=== PATIENT | male | born 1960 | race Caucasian/White ===

== ENCOUNTER 2018-05-12 13:33 | Emergency (ER) | payer OTHER ==
[2018-05-12 13:57] VITALS: BP 150/95; PULSE 86; TEMP 97.9; BMI 28.1
--- NOTE | 2018-05-12 14:37 | PDOC ---
History of Present Illness - General Chief Complaint: Cold Symptoms Stated Complaint: COUGHING Time Seen by Provider: 05/12/18 14:29 - History of Present Illness Initial Comments: 05/12/18 14:34 58-year-old male with a past medical history significant for hypertension, he was diabetic and however he is now controlled with diet and exercise. Presents for evaluation of fever chills night sweats and intermittent cough 5 days Past History - Past Medical History Allergies/Adverse Reactions: Allergies Allergy/AdvReac Type Severity Reaction Status Date / Time bee pollen Allergy Verified 11/30/15 08:28 Home Medications: Ambulatory Orders Acetaminophen [Tylenol .Regular Strength -] 650 mg PO Q6H PRN #0 tablet Ibuprofen [Motrin] 800 mg PO TID #20 tablet 11/11/14 Losartan Potassium [Cozaar -] 12.5 mg PO ASDIR 05/12/18 Cardiac Disorders: Yes (atypical chest pain workup) CVA: No COPD: No Diabetes: No HTN: Yes Hypercholesterolemia: Yes Seizures: No - Surgical History Appendectomy: Yes - Suicide/Smoking/Psychosocial Hx Smoking Status: No Smoking History: Never smoked Have you smoked in the past 12 months: No Number of Cigarettes Smoked Daily: 0 Cigars Per Day: 0 Hx Alcohol Use: No Drug/Substance Use Hx: No Substance Use Type: None Review of Systems - Review of Systems Constitutional: Yes: Fever, Malaise, Night Sweats Respiratory: Yes: Cough *Physical Exam - Vital Signs Last Vital Signs Temp Pulse Resp BP Pulse Ox 97.9 F 86 18 150/95 97 05/12/18 13:55 05/12/18 13:55 05/12/18 13:55 05/12/18 13:55 05/12/18 13:55 - Physical Exam Comments: 05/12/18 14:35 HEAD: NC/AT EYES: Conjuntiva clear Ears: Canals and TM's normal NOSE: No d/c THROAT: Moist mucous membrances, oral pharanx clear, uvula midline NECK: Supple without adenopathy CARDIAC: S1 S2 LUNGS: CTA Full and Equal breath sounds ABDOMEN: Soft NT ND MS: Full ROM in all joints without edema NEUROLOGIC: No gross sensory or motor deficits, NVID SKIN: Normal color and temperature no lesions or rashes Moderate Sedation - Procedure Monitoring Vital Signs: Procedure Monitoring Vital Signs Temperature 97.9 F 05/12/18 13:55 Pulse Rate 86 05/12/18 13:55 Respiratory Rate 18 05/12/18 13:55 Blood Pressure 150/95 05/12/18 13:55 O2 Sat by Pulse Oximetry (%) 97 05/12/18 13:55 Medical Decision Making - Medical Decision Making 05/12/18 14:35 Out out of range for treatment with Tamiflu. Supportive care follow-up with PCP *DC/Admit/Observation/Transfer Diagnosis at time of Disposition: Upper respiratory infection - Discharge Dispostion Disposition: HOME Condition at time of disposition: Stable Decision to Admit order: No - Referrals Referrals: Jose Noriega MD [Primary Care Provider] - - Patient Instructions Printed Discharge Instructions: DI for Viral Upper Respiratory Infection -- Adult Additional Instructions: Continue with Tylenol and Motrin as directed for body aches. Return to the emergency room should symptoms worsen or go unresolved. Follow-up with your primary care physician one to 2 days for further evaluation and treatment options. - Post Discharge Activity
== END 2018-05-12 14:37 | disposition home or self-care (01) ==
LOC: JERFT 13:33
DX: J06.9 Acute upper respiratory infection, unspecified (principal); B97.89 Other viral agents as the cause of diseases classified elsewhere; I10 Essential (primary) hypertension
CPT/HCPCS: 99281-25

== ENCOUNTER 2018-08-17 19:09 | Emergency (ER) | payer OTHER ==
[2018-08-17 19:33] VITALS: TEMP 98.7; BMI 28.1
--- NOTE | 2018-08-17 19:41 | PDOC ---
History of Present Illness - General Chief Complaint: Pain Stated Complaint: pain Time Seen by Provider: 08/17/18 19:39 - History of Present Illness Initial Comments: 08/17/18 19:39 Mr. White is a 58 yo male w/ pmh of HTN, HLD, gout, and prior DM controlled w/ diet and exercise who presents for evaluation of symptoms after bug bite recently - patient returned from [facility] on Sunday. Patient reports bite was on R forearm - is unsure of the day. Following this patient has had joint pain (10/10 R elbow), L elbow pain and L knee pain. Patient has also had subjective fever w/ chills / night sweats 2 days ago. On this same day Mr. Guzman endorses a mechanical fall backwards onto a chair where he landed on his R hand. Currently complaining of pain at R wrist as well s/p fall. Patient also endorses a new sexual partner sometime last week and requests GC and HIV testing. The patient denies chest pain, shortness of breath, headache and dizziness. Denies vomit, diarrhea and constipation. Denies dysuria, frequency, urgency and hematuria. Past History - Past Medical History Allergies/Adverse Reactions: Allergies Allergy/AdvReac Type Severity Reaction Status Date / Time bee pollen Allergy Verified 11/30/15 08:28 Home Medications: Ambulatory Orders Losartan Potassium [Cozaar -] 12.5 mg PO ASDIR 05/12/18 Dapagliflozin Propanediol [Farxiga] 5 mg PO 08/17/18 Metformin HCl [Glucophage] 500 mg PO 08/17/18 Cardiac Disorders: Yes (atypical chest pain workup) CVA: No COPD: No Diabetes: No HTN: Yes Hypercholesterolemia: Yes Seizures: No - Surgical History Appendectomy: Yes - Suicide/Smoking/Psychosocial Hx Smoking Status: No Smoking History: Never smoked Have you smoked in the past 12 months: No Number of Cigarettes Smoked Daily: 0 Cigars Per Day: 0 Hx Alcohol Use: No Drug/Substance Use Hx: No Substance Use Type: None Review of Systems - Review of Systems Comments:: 08/17/18 19:41 GENERAL/CONSTITUTIONAL: +Subjective fever/chills as described (resolved). No weakness. HEAD, EYES, EARS, NOSE AND THROAT: No change in vision. No ear pain or discharge. No sore throat. CARDIOVASCULAR: No chest pain or shortness of breath RESPIRATORY: No cough, wheezing, or hemoptysis. GASTROINTESTINAL: No nausea, vomiting, diarrhea or constipation. GENITOURINARY: No dysuria, frequency, or change in urination. MUSCULOSKELETAL: +Joint pain as described. SKIN: No rash NEUROLOGIC: No headache, vertigo, loss of consciousness, or change in strength/ sensation. ENDOCRINE: No increased thirst. No abnormal weight change HEMATOLOGIC/LYMPHATIC: No anemia, easy bleeding, or history of blood clots. ALLERGIC/IMMUNOLOGIC: No hives or skin allergy. *Physical Exam - Vital Signs Last Vital Signs Temp Pulse Resp BP Pulse Ox 98.7 F 104 H 19 124/75 98 08/17/18 19:30 08/17/18 19:30 08/17/18 19:30 08/17/18 19:30 08/17/18 19:30 - Physical Exam Comments: 08/17/18 19:41 GENERAL: Awake, alert, and fully oriented, in no acute distress HEAD: No signs of trauma, normocephalic, atraumatic EYES: PERRLA, EOMI, sclera anicteric, conjunctiva clear ENT: Auricles normal inspection, hearing grossly normal, nares patent, oropharynx clear without exudates. Moist mucosa NECK: Normal ROM, supple, no lymphadenopathy, JVD, or masses LUNGS: No distress, speaks full sentences, clear to auscultation bilaterally HEART: Regular rate and rhythm, normal S1 and S2, no murmurs, rubs or gallops, peripheral pulses normal and equal bilaterally. ABDOMEN: Soft, nontender, normoactive bowel sounds. No guarding, no rebound. No masses EXTREMITIES: +Left elbow warm to touch. Pain to palpation of R wrise, elbow, L elbow, L knee. Otherwise normal inspection, normal range of motion, no edema. No clubbing or cyanosis. NEUROLOGICAL: Cranial nerves II through XII grossly intact. Normal speech, normal gait, no focal sensorimotor deficits SKIN: Warm, Dry, normal turgor, no rashes or lesions noted. ED Treatment Course - LABORATORY CBC & Chemistry Diagram: 08/17/18 20:43 08/17/18 20:43 Medical Decision Making - Medical Decision Making 08/17/18 22:33 Mr. White is a 58 yo male w/ pmh as described who presents for evaluation of symptoms concerning for gout vs. septic joint vs. disseminated gonorrhea (more unlikely). Patient evaluated with labs as below. Labs significant for mildly elevated WBC, elevated ESR and elevated CRP. Patient exam negative for factors that raise concern for septic joint as patient able to range all joints w/out difficulty. Patient not currently febrile as well. Discussed with patient that STI testing will take several days. Patient reports improvement of symptoms following fluids and toradol. XR evaluation of joints negative. No concern for acute process at this time. Discussed with patient at length that he will need follow-up this week and that he should return immediately if any changes, fevers , or other concerning developments. Patient verbalized understanding and agreement. Rheumatology info provided. Discharging to home. Laboratory Results - last 24 hr 08/17/18 08/17/18 08/17/18 20:43 20:43 20:43 WBC 11.8 H RBC 4.65 Hgb 13.1 Hct 40.3 MCV 86.8 MCH 28.1 MCHC 32.4 RDW 14.5 Plt Count 210 MPV 8.5 Absolute Neuts (auto) 9.1 H Neutrophils % 77.2 D Lymphocytes % 13.0 D Monocytes % 7.2 Eosinophils % 1.8 Basophils % 0.8 Nucleated RBC % 0 ESR 44 H Sodium 140 Potassium 4.1 Chloride 107 Carbon Dioxide 26 Anion Gap 7 L BUN 20 H Creatinine 1.2 Est GFR (CKD-EPI)AfAm 77.33 Est GFR (CKD-EPI)NonAf 66.72 Random Glucose 246 H Calcium 8.9 Total Bilirubin 0.4 AST 15 ALT 21 Alkaline Phosphatase 56 C-Reactive Protein 14.5 H Total Protein 6.6 Albumin 3.5 *DC/Admit/Observation/Transfer Diagnosis at time of Disposition: Polyarthralgia - Discharge Dispostion Disposition: HOME - Referrals Referrals: Jose Noriega MD [Primary Care Provider] - Cesar Griggs MD [Non Staff, Medical] - - Patient Instructions Printed Discharge Instructions: DI for Arthralgia Additional Instructions: You were evaluated today in the ER for your pain. We performed Xray of your joints as well as laboratory evaluation with no specific emergent findings. Some of your labs are still pending and you will be updated if any concerning values arise. Please follow-up with primary care provider on Sunday for further evaluation. We have also provided you with rheumatology information you may use to establish care if you desire. Return to ER immediately if any fever, chills, increase in pain, difficulty moving joints, or other concerning symptoms. - Post Discharge Activity
[2018-08-17] MEDS ORDERED: KETOROLAC TROMETHAMINE 30 MG/1 ML VIAL IVPUSH ONE ×2 (20:09→20:27)
[2018-08-17] MEDS ORDERED: KETOROLAC TROMETHAMINE 60 MG/2 ML VIAL IM ONE (20:18)
[2018-08-17] MEDS ORDERED: KETOROLAC TROMETHAMINE 30 MG/1 ML VIAL ONE (20:27)
[2018-08-17] MEDS ORDERED: SODIUM CHLORIDE 1,000 ML IV STA (20:48)
[2018-08-17 21:04] LABS: BASO % 0.8 % (0-2.0); EOS % 1.8 % (0-4.5); HEMATOCRIT 40.3 % (35.4-49); HEMOGLOBIN 13.1 GM/dL (11.7-16.9); MCH 28.1 pg (25.7-33.7); MCHC 32.4 g/dl (32.0-35.9); MEAN CELL VOLUME 86.8 fl (80-96); MEAN PLT VOLUME 8.5 fl (7.5-11.1); MONO % 7.2 % (3.8-10.2); NEUT % 77.2 % (42.8-82.8); PLATELET COUNT 210 K/MM3 (134-434); RBC 4.65 M/mm3 (4.00-5.60); RDW 14.5 % (11.9-15.9); WHITE BLOOD COUNT 11.8 K/mm3 (4.0-10.0)
[2018-08-17 21:24] LABS: ALBUMIN 3.5 g/dl (3.4-5.0); BILIRUBIN,TOTAL 0.4 mg/dL (0.2-1); CALCIUM 8.9 mg/dL (8.5-10.1); CREATININE 1.2 mg/dL (0.55-1.3); POTASSIUM 4.1 mmol/L (3.5-5.1); TOT PROT 6.6 g/dl (6.4-8.2)
--- NOTE | 2018-08-17 21:24 | PDOC ---
Documentation entered by Lillian Tejeda SCRIBE, acting as scribe for Luan Flores MD. Luan Flores MD: This documentation has been prepared by the Ileana camilo Daisy, SCRIBE, under my direction and personally reviewed by me in its entirety. I confirm that the documentation accurately reflects all work, treatment, procedures, and medical decision making performed by me. Attending Attestation - Resident Resident Name: [email or web address] - ED Attending Attestation I have performed the following: I have examined & evaluated the patient, The case was reviewed & discussed with the resident, I agree w/resident's findings & plan, Exceptions are as noted - HPI HPI: 08/17/18 19:55 The patient is a 58YOM with a PMH of HTN, HLD, gout and pre-DM who presents to the ER complaining of joint pains, fevers, chills. Pt reports right forearm pain and right wrist, left forearm and left knee pain s/p mechanical fall 2 days ago. He states he returned from the [place] on 08/13 and had noticed what he thought was an insect bite to his R forearm. Since then he has had subjective fevers and chills. Denies cough. Denies LEIGH/neck pain. Denies abdominal pain/N/V/D. Allergies: bee pollen - Physicial Exam PE: 08/17/18 21:14 GENERAL: Awake, alert, and fully oriented, in no acute distress. HEAD: No signs of trauma EYES: PERRLA, EOMI, sclera anicteric, conjunctiva clear ENT: Auricles normal inspection, hearing grossly normal, nares patent, oropharynx clear without exudates. Moist mucosa NECK: Nontender, no stepoffs, Normal ROM, supple, no lymphadenopathy, JVD, or masses LUNGS: Breath sounds equal, clear to auscultation bilaterally. No wheezes, and no crackles HEART: Regular rate and rhythm, normal S1 and S2, no murmurs, rubs or gallops ABDOMEN: Soft, nontender, normoactive bowel sounds. No guarding, no rebound. No masses EXTREMITIES: Normal range of motion, no edema. No clubbing or cyanosis. No cords, erythema, or tenderness NEUROLOGICAL: Cranial nerves II through XII intact. 5/5 strength and sensation in all extremities, Normal speech, normal gait, normal cerebellar function SKIN: Warm, Dry, normal turgor, no rashes or lesions noted. - Medical Decision Making 08/17/18 21:20 58 M with subjective fevers, chills, polyarthralgias. Pt with no evidence of traumatic injury on exam other than single raised erythematous lesion on his R forearm. Suspect viral syndrome. Pt with no annular rash and did not see any ticks, making Lyme disease unlikely. Pt without any history of polyarthritis in the past. - Labs - XR R forearm - IVF, NSAIDs 08/17/18 22:37 Labs with elevated ESR/CRP - nonspecific Lyme titers sent GC/CT pending XRs negative on my read Pt reassessed - feels much better with toradol and fluids Suspect viral syndrome but cannot exclude rheumatologic process Will DC with NSAIDs and rheum f/u Pt is well appearing, with normal vitals. Clinically stable for DC at this time. I discussed the physical exam findings, ancillary test results and final diagnoses with the patient. I answered all of the patient's questions. The patient was satisfied with the care received and felt comfortable with the discharge plan and treatment plan. The patient agrees to follow up with the primary care physician within 24-72 hours.
[2018-08-17 23:07] VITALS: BP 126/78; PULSE 98
--- NOTE | 2018-08-18 07:48 | PDOC ---
*Physical Exam - Vital Signs Last Vital Signs Temp Pulse Resp BP Pulse Ox 98.7 F 98 H 18 126/78 100 08/17/18 19:30 08/17/18 23:06 08/17/18 23:06 08/17/18 23:06 08/17/18 23:06 ED Treatment Course - LABORATORY CBC & Chemistry Diagram: 08/17/18 20:43 08/17/18 20:43 - ADDITIONAL ORDERS Additional order review: Laboratory Results 08/17/18 20:43 Sodium 140 Potassium 4.1 Chloride 107 Carbon Dioxide 26 Anion Gap 7 L BUN 20 H Creatinine 1.2 Est GFR (CKD-EPI)AfAm 77.33 Est GFR (CKD-EPI)NonAf 66.72 Random Glucose 246 H Calcium 8.9 Total Bilirubin 0.4 AST 15 ALT 21 Alkaline Phosphatase 56 C-Reactive Protein 14.5 H Total Protein 6.6 Albumin 3.5 08/17/18 20:43 RBC 4.65 MCV 86.8 MCHC 32.4 RDW 14.5 MPV 8.5 Neutrophils % 77.2 D Lymphocytes % 13.0 D Monocytes % 7.2 Eosinophils % 1.8 Basophils % 0.8 - Medications Given in the ED: ED Medications Discontinued Medications Generic Name Dose Route Start Last Admin Trade Name Freq PRN Reason Stop Dose Admin Sodium Chloride 1,000 mls @ 1,000 mls/hr 08/17/18 20:48 08/17/18 20:54 Normal Saline - IV 08/17/18 21:47 1,000 mls/hr ASDIR STA Administration Ketorolac Tromethamine 30 mg 08/17/18 20:09 08/17/18 20:57 Toradol Injection - IVPUSH 08/17/18 20:10 Not Given ONCE ONE Ketorolac Tromethamine 60 mg 08/17/18 20:18 08/17/18 20:57 Toradol Injection - IM 08/17/18 20:19 Not Given ONCE ONE Ketorolac Tromethamine 30 mg 08/17/18 20:27 08/17/18 20:53 Toradol Injection - IVPUSH 08/17/18 20:28 30 mg ONCE ONE Administration Medical Decision Making - Medical Decision Making 08/18/18 07:[address] Rudolph due to concern about subtle impaction fracture on R wrist film--recommends repeat films. I called the patient to inform him of these findings and to ask him to return to the ED for repeat films. Patient will come in today. *DC/Admit/Observation/Transfer Diagnosis at time of Disposition: Polyarthralgia - Discharge Dispostion Disposition: HOME Condition at time of disposition: Stable - Prescriptions Prescriptions: Naproxen 500 mg PO BID #14 tablet - Referrals Referrals: Cesar Griggs MD [Non Staff, Medical] - Jose Noriega MD [Primary Care Provider] - - Patient Instructions Printed Discharge Instructions: DI for Arthralgia Additional Instructions: You were evaluated today in the ER for your pain. We performed Xray of your joints as well as laboratory evaluation with no specific emergent findings. Some of your labs are still pending and you will be updated if any concerning values arise. Please follow-up with primary care provider on Sunday for further evaluation. We have also provided you with rheumatology information you may use to establish care if you desire. Return to ER immediately if any fever, chills, increase in pain, difficulty moving joints, or other concerning symptoms. - Post Discharge Activity
== END 2018-08-17 23:26 | disposition home or self-care (01) ==
LOC: JER 19:09
PROC: 3E0337Z Introduction of Electrolytic and Water Balance Substance into Peripheral Vein, Percutaneous Approach (ICD-10-PCS; principal; 2018-08-17)
PROC: 3E0333Z Introduction of Anti-inflammatory into Peripheral Vein, Percutaneous Approach (ICD-10-PCS; 2018-08-17)
DX: M25.522 Pain in left elbow (principal); M25.521 Pain in right elbow; M25.531 Pain in right wrist; M25.562 Pain in left knee; R70.0 Elevated erythrocyte sedimentation rate; R79.82 Elevated C-reactive protein (CRP)
CPT/HCPCS: 36415; 71046-TC-FY; 73090-TC-RT-FY; 73110-TC-RT-FY; 73562-TC-LT-FY; 80053; 85025; 85651; 86140; 86618; 87389; 87491; 87591; 87804; 96361; 96374; 99283-25; J7030

== ENCOUNTER 2018-08-18 16:16 | Emergency (ER) | payer OTHER ==
[2018-08-18 16:24] VITALS: BP 153/79; PULSE 92; TEMP 99; BMI 28.1
--- NOTE | 2018-08-18 17:45 | PDOC ---
History of Present Illness - General Chief Complaint: Revisit,Radiology Variance Stated Complaint: SENT FOR X-RAY Time Seen by Provider: 08/18/18 16:45 Past History - Past Medical History Allergies/Adverse Reactions: Allergies Allergy/AdvReac Type Severity Reaction Status Date / Time bee pollen Allergy Verified 08/18/18 16:24 Home Medications: Ambulatory Orders Losartan Potassium [Cozaar -] 12.5 mg PO ASDIR 05/12/18 Dapagliflozin Propanediol [Farxiga] 5 mg PO 08/17/18 Metformin HCl [Glucophage] 500 mg PO 08/17/18 Naproxen 500 mg PO BID #14 tablet 08/17/18 Cardiac Disorders: Yes (atypical chest pain workup) CVA: No COPD: No Diabetes: No HTN: Yes Hypercholesterolemia: Yes Seizures: No - Surgical History Appendectomy: Yes - Suicide/Smoking/Psychosocial Hx Smoking Status: No Smoking History: Never smoked Have you smoked in the past 12 months: No Number of Cigarettes Smoked Daily: 0 Cigars Per Day: 0 Hx Alcohol Use: No Drug/Substance Use Hx: No Substance Use Type: None *Physical Exam - Vital Signs Last Vital Signs Temp Pulse Resp BP Pulse Ox 99 F 92 H 18 153/79 99 08/18/18 16:22 08/18/18 16:22 08/18/18 16:22 08/18/18 16:22 08/18/18 16:22 ED Treatment Course - RADIOLOGY Radiology Studies Ordered: Category Date Time Status WRIST W/HAND-RIGHT* [RAD] Stat Radiology 08/18/18 16:26 Taken *DC/Admit/Observation/Transfer Diagnosis at time of Disposition: Radial fracture Qualifiers: Encounter type: initial encounter Radius location: distal Fracture type: closed Fracture morphology: unspecified fracture morphology Laterality: right Qualified Code(s): S52.501A - Unspecified fracture of the lower end of right radius, initial encounter for closed fracture - Discharge Dispostion Disposition: HOME Condition at time of disposition: Stable Decision to Admit order: No - Referrals Referrals: Rustam Epps MD [Staff Physician] - - Patient Instructions Printed Discharge Instructions: DI for Forearm Fracture Additional Instructions: You have a break in your radius (forearm) You were splinted today Keep the splint clean and dry. Cover it when showering Take the Naproxen that was prescribed to you twice a day Follow up with orthopedics. A referral has been given Call back in 3 days for the results of your blood test Follow up with your primary care doctor this week Return to the ER for any new or worsening symptoms - Post Discharge Activity
[2018-08-18] MEDS ORDERED: KETOROLAC TROMETHAMINE 60 MG/2 ML VIAL IM ONE (17:49)
[2018-08-18] MEDS ORDERED: KETOROLAC TROMETHAMINE 60 MG/2 ML VIAL ONE (17:51)
== END 2018-08-18 17:56 | disposition home or self-care (01) ==
LOC: JERFT 16:16
PROC: 2W3DX1Z Immobilization of Left Lower Arm using Splint (ICD-10-PCS; principal; 2018-08-18)
DX: S52.501D Unspecified fracture of the lower end of right radius, subsequent encounter for closed fracture with routine healing (principal); X58.XXXD Exposure to other specified factors, subsequent encounter
CPT/HCPCS: 29125; 73110-TC-RT-FY; 73130-TC-RT-FY; 99281-25

== ENCOUNTER 2021-01-05 13:25 | Observation (INO) | payer OTHER ==
[2021-01-05 13:39] VITALS: BMI 27.0
[2021-01-05 15:35] LABS: BASO % 0.7 % (0-2.0); HEMATOCRIT 43.1 % (35.4-49); HEMOGLOBIN 14.6 GM/dL (11.7-16.9); LYMPH % 29.6 % (8-40); MCH 28.7 pg (25.7-33.7); MCHC 33.8 g/dl (32.0-35.9); MEAN CELL VOLUME 84.8 fl (80-96); MEAN PLT VOLUME 8.7 fl (7.5-11.1); MONO % 6.1 % (3.8-10.2); NEUT % 60.6 % (42.8-82.8); PLATELET COUNT 247 10^3/uL (134-434); RBC 5.08 M/mm3 (4.00-5.60); RDW 14.6 % (11.9-15.9); WHITE BLOOD COUNT 8.5 K/mm3 (4.0-10.0)
[2021-01-05 15:52] LABS: CHLORIDE 105 mmol/L (98-107); SODIUM 139 mmol/L (136-145)
[2021-01-05 15:55] LABS: ALBUMIN 4.2 g/dl (3.4-5.0); ANION GAP 8 MMOL/L (8-16); BLOOD UREA NITROGEN 18.5 mg/dL (7-18); CALCIUM 9.7 mg/dL (8.5-10.1); CO2 26 mmol/L (21-32); GLUCOSE,RANDOM 84 mg/dL (74-106)
[2021-01-05 15:58] LABS: CREATININE 0.9 mg/dL (0.55-1.3); SGOT/AST 8 U/L (15-37); SGPT/ALT 23 U/L (13-61)
[2021-01-05 16:00] LABS: BILIRUBIN,TOTAL 0.6 mg/dL (0.2-1); TOT PROT 7.6 g/dl (6.4-8.2)
[2021-01-05 16:01] LABS: ALK PHOS 55 U/L (45-117)
[2021-01-05] MEDS ORDERED: ASPIRIN 81 MG CHEWABLE TABLETS PO ONE (18:53)
[2021-01-05] MEDS ORDERED: ASPIRIN 81 MG CHEWABLE TABLETS ONE (19:30)
[2021-01-06] MEDS ORDERED: PANTOPRAZOLE 40 MG TABLET PO ONE ×2 (01:44→06:00)
[2021-01-06] MEDS: INSULIN SLIDING SCALE (NOVOLOG) 1 VIAL SQ SCH ×2 (06:08→13:28)
[2021-01-06 06:58] LABS: BASO % 0.9 % (0-2.0); EOS % 5.5 % (0-4.5); HEMOGLOBIN 14.5 GM/dL (11.7-16.9); LYMPH % 27.5 % (8-40); MCH 28.8 pg (25.7-33.7); MCHC 33.8 g/dl (32.0-35.9); MEAN CELL VOLUME 85.2 fl (80-96); MEAN PLT VOLUME 9.1 fl (7.5-11.1); MONO % 7.3 % (3.8-10.2); NEUT % 58.8 % (42.8-82.8); PLATELET COUNT 245 10^3/uL (134-434); RBC 5.05 M/mm3 (4.00-5.60); RDW 14.2 % (11.9-15.9)
[2021-01-06 07:04] LABS: CHLORIDE 107 mmol/L (98-107); SODIUM 140 mmol/L (136-145)
[2021-01-06 07:06] LABS: CALCIUM 9.5 mg/dL (8.5-10.1)
[2021-01-06 07:07] LABS: ALBUMIN 3.9 g/dl (3.4-5.0); ANION GAP 5 MMOL/L (8-16); BLOOD UREA NITROGEN 22.6 mg/dL (7-18); CO2 28 mmol/L (21-32); GLUCOSE,RANDOM 146 mg/dL (74-106)
[2021-01-06 07:10] LABS: CHOLESTEROL 239 mg/dL (50-200); CREATININE 0.9 mg/dL (0.55-1.3); PHOSPHOROUS 3.9 mg/dL (2.5-4.9); SGOT/AST 8 U/L (15-37); SGPT/ALT 23 U/L (13-61); TRIGLYCERIDES 279 mg/dL (0-150)
[2021-01-06 07:11] LABS: BILIRUBIN,TOTAL 0.6 mg/dL (0.2-1); LDL CHOLESTEROL (ONLY SJRH) 155 mg/dL (5-100); TOT PROT 7.2 g/dl (6.4-8.2)
[2021-01-06 07:12] LABS: ALK PHOS 52 U/L (45-117); HDL CHOLESTEROL 31 mg/dL (40-60)
[2021-01-06] MEDS ORDERED: ENOXAPARIN NA (PORCINE) 40 MG/0.4 ML DISP.SYRIN SQ SCH (10:00)
[2021-01-06] MEDS ORDERED: HYDROCHLOROTHIAZIDE 12.5 MG CAPSULE (FP) PO SCH (10:00)
[2021-01-06] MEDS ORDERED: FLU VACC QS2021-22(6MOS UP)/PF 60 MCG/0.5 ML SYRINGE IM ONE (11:15)
[2021-01-06] MEDS ORDERED: metoPROLOL SUCCINATE 25 MG TAB.SR.24H (FP) PO SCH (13:00)
[2021-01-06 14:20] LABS: LDH 103 U/L (87-246)
[2021-01-06 14:51] VITALS: BP 148/63; PULSE 86; TEMP 98.3
[2021-01-06] MEDS ORDERED: ATORVASTATIN CA 20 MG TABLET (FP) PO SCH (22:00)
[2021-01-06] MEDS ORDERED: LOSARTAN POTASSIUM 50 MG TABLET PO SCH (22:00)
[2021-01-07] MEDS ORDERED: ASPIRIN 81 MG CHEWABLE TABLETS PO SCH (10:00)
== END 2021-01-06 18:25 | disposition home or self-care (01) ==
LOC: JER 13:25 → INTOOBSV 18:53 → OBSVTOIN 18:53 → UNDOADMOB 18:53 → JERBED 18:53 → J4W 23:15 → JERBED 23:15 → J4W 01-06 00:50 → JERBED 01-06 08:20
PROVIDERS: ADMIT Internal Medicine; ATTEND Nurse Practitioner Acute Care
PROC: 3E023GC Introduction of Other Therapeutic Substance into Muscle, Percutaneous Approach (ICD-10-PCS; principal; 2021-01-06)
PROC: 3E0234Z Introduction of Serum, Toxoid and Vaccine into Muscle, Percutaneous Approach (ICD-10-PCS; 2021-01-06)
PROC: 3E013VG Introduction of Insulin into Subcutaneous Tissue, Percutaneous Approach (ICD-10-PCS; 2021-01-06)
DX: R07.9 Chest pain, unspecified (principal); R73.03 Prediabetes; I10 Essential (primary) hypertension; Z79.4 Long term (current) use of insulin; Z29.9 Encounter for prophylactic measures, unspecified; Z23 Encounter for immunization; Z91.030 Bee allergy status
CPT/HCPCS: 36415; 71045-TC-FY; 78452-TC; 80053; 80061; 82550; 82728; 82962; 83036; 83615; 83735; 84100; 84443; 84484; 85025; 85379; 86140; 90686; 93005; 93010; 93017; 93306-TC; 96372; 99285-25; A9502; C9803; G0378; U0003; U0005

== ENCOUNTER 2023-06-26 21:53 | Emergency (ER) | payer OTHER ==
[2023-06-26 22:09] VITALS: BP 131/84; PULSE 108; RESP 20; TEMP 98.8; BMI 25.8
[2023-06-26] MEDS ORDERED: MAG HYDROX/AL HYDROX/SIMETH 30 ML UNIT-DOSE CUP ONE (22:45)
[2023-06-26] MEDS ORDERED: ONDANSETRON 4 MG/2 ML VIAL ONE (22:45)
[2023-06-26] MEDS ORDERED: FAMOTIDINE 20 MG/50 ML IVPB 20 MG/50 ML MG IVPB ONE (22:46)
[2023-06-26] MEDS: FAMOTIDINE 20 MG/50 ML IVPB 20 MG/50 ML MG IVPB ONE (23:02)
[2023-06-26] MEDS: ONDANSETRON 4 MG/2 ML VIAL IVPUSH ONE (23:02)
[2023-06-26] MEDS: MAG HYDROX/AL HYDROX/SIMETH 30 ML UNIT-DOSE CUP PO ONE (23:02)
[2023-06-26] MEDS: LACTATED RINGERS SOLUTION 1000 ML INFUS.BAG IV ONE (23:02)
[2023-06-26 23:06] LABS: BASO % 0.5 % (0-2.0); EOS % 4.4 % (0-4.5); HEMATOCRIT 44.2 % (35.4-49); HEMOGLOBIN 14.4 GM/dL (11.7-16.9); LYMPH % 10.5 % (8-40); MCH 26.6 pg (25.7-33.7); MCHC 32.6 g/dl (32.0-35.9); MEAN CELL VOLUME 81.7 fl (80-96); MEAN PLT VOLUME 8.5 fl (7.5-11.1); MONO % 8.5 % (3.8-10.2); NEUT % 76.1 % (42.8-82.8); PLATELET COUNT 267 10^3/uL (134-434); RBC 5.41 M/mm3 (4.00-5.60); RDW 15.7 % (11.9-15.9)
[2023-06-26 23:31] LABS: POTASSIUM 4.4 mmol/L (3.5-5.1)
[2023-06-26 23:34] LABS: ALBUMIN 4.2 g/dl (3.4-5.0); BLOOD UREA NITROGEN 33.1 mg/dL (7-18); CALCIUM 9.9 mg/dL (8.5-10.1); MAGNESIUM 1.7 mg/dL (1.8-2.4)
[2023-06-26 23:37] LABS: CREATININE 1.3 mg/dL (0.55-1.3)
[2023-06-26 23:39] LABS: BILIRUBIN,TOTAL 0.5 mg/dL (0.2-1); TOT PROT 8.1 g/dl (6.4-8.2)
[2023-06-27] MEDS ORDERED: MAGNESIUM OXIDE 400 MG TABLET (FP) ONE ×2 (00:47→00:58)
[2023-06-27] MEDS: MAGNESIUM OXIDE 400 MG TABLET (FP) PO ONE ×2 (00:55→01:03)
[2023-06-27 01:16] LABS: EPI CELLS 18 /uL (0-25.1); HYALINE CASTS 5 /uL (0-3.1); URINE APPEARANCE CLEAR; URINE BACTERIA 0 /uL (0-1359); URINE BILIRUBIN NEGATIVE (NEGATIVE); URINE COLOR YELLOW; URINE GLUCOSE (UA) NEGATIVE (NEGATIVE); URINE KETONE NEGATIVE (NEGATIVE); URINE LEUK ESTERASE NEGATIVE (NEGATIVE); URINE NITRITE NEGATIVE (NEGATIVE); URINE PROTEIN 2+ (NEGATIVE); URINE RBC 13 /uL (0-23.9); URINE UROBILINOGEN 0.2 mg/dL (0.2-1.0); URINE WBC 22 /uL (0-25.8)
== END 2023-06-27 01:49 | disposition home or self-care (01) ==
LOC: JER 21:53
PROC: 3E033GC Introduction of Other Therapeutic Substance into Peripheral Vein, Percutaneous Approach (ICD-10-PCS; principal; 2023-06-26)
PROC: 3E033GC Introduction of Other Therapeutic Substance into Peripheral Vein, Percutaneous Approach (ICD-10-PCS; 2023-06-26)
DX: R11.2 Nausea with vomiting, unspecified (principal); R19.7 Diarrhea, unspecified; R50.9 Fever, unspecified; Z20.822 Contact with and (suspected) exposure to COVID-19
CPT/HCPCS: 0241U-QW; 36415; 71045-TC-FY; 80053; 81003; 83690; 83735; 85025; 87086; 93005; 93010; 96365; 96375; 99285-25

== ENCOUNTER 2023-08-29 21:27 | Emergency (ER) | payer OTHER ==
[2023-08-29 21:33] VITALS: BMI 27.0
[2023-08-29] MEDS ORDERED: ACETAMINOPHEN INJECTION 100 ML IVPB ONE (23:09)
[2023-08-29] MEDS: ACETAMINOPHEN 1000 MG/100 ML BAG IVPB ONE (23:22)
[2023-08-29 23:27] LABS: BASO % 0.6 % (0-2.0); HEMATOCRIT 41.4 % (35.4-49); HEMOGLOBIN 13.6 GM/dL (11.7-16.9); LYMPH % 12.6 % (8-40); MCH 26.1 pg (25.7-33.7); MCHC 32.9 g/dl (32.0-35.9); MEAN CELL VOLUME 79.3 fl (80-96); MEAN PLT VOLUME 8.5 fl (7.5-11.1); MONO % 4.3 % (3.8-10.2); NEUT % 80.5 % (42.8-82.8); PLATELET COUNT 234 10^3/uL (134-434); RBC 5.22 M/mm3 (4.00-5.60); RDW 16.6 % (11.9-15.9); WHITE BLOOD COUNT 11.3 K/mm3 (4.0-10.0)
[2023-08-29 23:30] LABS: EPI CELLS 1 /uL (0-25.1); HYALINE CASTS 0 /uL (0-3.1); PH,URINE 5.5 (5.0-8.0); URINE APPEARANCE CLEAR; URINE BACTERIA 2 /uL (0-1359); URINE BILIRUBIN NEGATIVE (NEGATIVE); URINE COLOR YELLOW; URINE GLUCOSE (UA) 3+ (NEGATIVE); URINE KETONE NEGATIVE (NEGATIVE); URINE LEUK ESTERASE NEGATIVE (NEGATIVE); URINE NITRITE NEGATIVE (NEGATIVE); URINE PROTEIN 1+ (NEGATIVE); URINE RBC 11 /uL (0-23.9); URINE UROBILINOGEN 0.2 mg/dL (0.2-1.0); URINE WBC 3 /uL (0-25.8)
[2023-08-29 23:54] LABS: POTASSIUM 5.2 mmol/L (3.5-5.1)
[2023-08-29 23:56] LABS: ALBUMIN 4.1 g/dl (3.4-5.0); BLOOD UREA NITROGEN 24.2 mg/dL (7-18); MAGNESIUM 1.9 mg/dL (1.8-2.4)
[2023-08-29 23:59] LABS: CREATININE 1.4 mg/dL (0.55-1.3)
[2023-08-30 00:01] LABS: BILIRUBIN,TOTAL 0.3 mg/dL (0.2-1); TOT PROT 7.6 g/dl (6.4-8.2)
[2023-08-30] MEDS ORDERED: KETOROLAC TROMETHAMINE 30 MG/1 ML VIAL ONE (01:14)
[2023-08-30] MEDS: KETOROLAC TROMETHAMINE 30 MG/1 ML VIAL IVPUSH ONE (01:19)
[2023-08-30 02:01] VITALS: BP 118/61; PULSE 92; RESP 12; TEMP 98.4
== END 2023-08-30 02:02 | disposition home or self-care (01) ==
LOC: JER 21:27
PROC: 3E033NZ Introduction of Analgesics, Hypnotics, Sedatives into Peripheral Vein, Percutaneous Approach (ICD-10-PCS; principal; 2023-08-29)
PROC: 3E033GC Introduction of Other Therapeutic Substance into Peripheral Vein, Percutaneous Approach (ICD-10-PCS; 2023-08-30)
DX: M54.50 Low back pain, unspecified (principal); R10.30 Lower abdominal pain, unspecified
CPT/HCPCS: 36415; 74177-TC; 76870-TC; 80053; 81003; 83735; 85025; 87086; 99285-25; J0131